=== PATIENT | female | born 1965 | race Caucasian/White ===

== ENCOUNTER 2023-09-08 23:50 | Emergency (ER) | payer SELFPAY ==
[2023-09-09 00:40] LABS: BASOPHILS ABSOLUTE AUTO 0.1 x10-3/uL (0.0-0.1); EOSINOPHILS ABSOLUTE AUTO 0.3 x10-3/uL (0.0-0.8); LYMPHOCYTES ABSOLUTE AUTO 3.7 x10-3/uL (1.0-4.4); MONOCYTES ABSOLUTE AUTO 0.7 x10-3/uL (0.3-1.0)
[2023-09-09 00:46] LABS: BASOPHILS PERCENT AUTO 1.1 % (0.2-1.5); EOSINOPHILS PERCENT AUTO 3.5 % (0.6-8.1); HEMATOCRIT 43.7 % (34.2-48.2); HEMOGLOBIN 14.9 g/dL (11.4-15.5); LYMPHOCYTES PERCENT AUTO 43.2 % (18.4-52.1); MEAN CORPUSCULAR HEMOGLOBIN 32.7 pg (23.9-33.9); MEAN CORPUSCULAR HGB CONC 34.1 g/dL (31.9-34.8); MEAN CORPUSCULAR VOLUME 95.8 fL (76.7-100.5); MEAN PLATELET VOLUME 10.1 fL (7.1-12.4); MONOCYTES PERCENT AUTO 8.1 % (4.4-15.7); NEUTROPHILS ABSOLUTE AUTO 3.8 x10-3/uL (1.5-6.3); NEUTROPHILS PERCENT AUTO 44.1 % (30.8-76.2); PLATELET COUNT,PLT 236 x10(3)uL (151-488); RED BLOOD CELL COUNT 4.56 x10(6)uL (3.60-5.20); RED CELL DISTRIBUTION WIDTH 13.6 % (12.3-16.5); WHITE BLOOD CELL COUNT,WBC 8.7 x10-3/uL (3.0-10.3)
[2023-09-09 00:49] LABS: C-REACTIVE PROTEIN 0.81 mg/dL (<0.50)
[2023-09-09 00:54] LABS: ALANINE AMINOTRANSFERASE,ALT 28 U/L (12-36); ALBUMIN 3.5 g/dL (3.5-5.2); ALKALINE PHOSPHATASE 106 IU/L (56-112); ASPARTATE AMNIOTRANSFERASE,AST 24 IU/L (5-25); BILIRUBIN TOTAL 0.3 mg/dL (0.1-1.3); BLOOD UREA NITROGEN,BUN 8 mg/dL (7-18); BUN/CREATININE RATIO 11.4 (9-20); CALCIUM 8.6 mg/dL (8.6-10.2); CARBON DIOXIDE,CO2 25 mmol/L (21-32); CHLORIDE,CL 102 mmol/L (100-110); CREATININE 0.7 mg/dL (0.55-1.02); EST CRCL DRUG DOSING (CG) 83.65 mL/min; ESTIMATED GFR 100 mL/min (>60); GLUCOSE RANDOM 103 mg/dL (80-116); SODIUM,NA 139 mmol/L (135-145)
[2023-09-09 00:58] LABS: POTASSIUM,K 2.8 mmol/L (3.5-5.3)
[2023-09-09 00:59] LABS: ETHANOL BLOOD MEDICAL 0.17 % (<0.03)
[2023-09-09] MEDS ORDERED: Potassium Chloride 20 MEQ Tab.ER PO ONE (01:02)
[2023-09-09] MEDS: Diphtheria,Pertussis(Acell),Tetanus Vaccine 0.5 ML Syringe IM ONE (01:43)
[2023-09-09] MEDS: ceFAZolin 2 GM Vial IVPUSH ONE (01:47)
[2023-09-09] MEDS: Potassium Chloride 10 MEQ in Premix Bag 1 BAG IV ONE (01:49)
== END 2023-09-09 02:06 ==
LOC: FB.ED 23:50
DX: S02.91XA Unspecified fracture of skull, initial encounter for closed fracture (principal); S01.01XA Laceration without foreign body of scalp, initial encounter; S06.9X1A Unspecified intracranial injury with loss of consciousness of 30 minutes or less, initial encounter; S06.331A Contusion and laceration of cerebrum, unspecified, with loss of consciousness of 30 minutes or less, initial encounter; S06.5X1A Traumatic subdural hemorrhage with loss of consciousness of 30 minutes or less, initial encounter; S06.6X1A Traumatic subarachnoid hemorrhage with loss of consciousness of 30 minutes or less, initial encounter; G93.89 Other specified disorders of brain; E04.1 Nontoxic single thyroid nodule; E87.6 Hypokalemia; F10.129 Alcohol abuse with intoxication, unspecified; F12.90 Cannabis use, unspecified, uncomplicated; Z23 Encounter for immunization; W19.XXXA Unspecified fall, initial encounter
CPT/HCPCS: 36415; 70450; 72125; 80053; 80307; 83735; 85025; 86140; 90471; 90715; 93010; 96365; 96366; 96375; 99285; 99285-25; J0690; J3480